=== PATIENT | male | born 1975 | race Caucasian/White ===

== ENCOUNTER 2017-05-07 16:00 | Emergency (ER) | payer OTHER ==
[2017-05-07 16:07] VITALS: BP 104/56; PULSE 94; TEMP 98.1; BMI 21.7
--- NOTE | 2017-05-07 16:45 | PDOC ---
History of Present Illness - General Chief Complaint: Head/Neck problem Stated Complaint: PAIN Time Seen by Provider: 05/07/17 16:21 History Source: Patient Exam Limitations: No Limitations - History of Present Illness Initial Comments: 05/07/17 16:40 41 y/o male presents to the ED with complaints of intermittent twitching to his head and neck since of October. Patient states was involved in a closed head injury in 2000 where he was seen by a neurologist will a few months and then failed to follow-up. Patient states has no visual changes, headache, dizziness, decreased range of motion of the neck, or radiation of pain. Timing/Duration: intermittent Severity: mild Associated Symptoms: reports: denies symptoms Past History - Travel Traveled outside of the country in the last 30 days: No - Past Medical History Allergies/Adverse Reactions: Allergies Allergy/AdvReac Type Severity Reaction Status Date / Time No Known Allergies Allergy Verified 05/07/17 16:04 Home Medications: Ambulatory Orders NK [No Known Home Medication] 05/07/17 - Psycho/Social/Smoking Cessation Hx Suicidal Ideation: No Smoking History: Never smoked Cigars Per Day: 1 Patient Lives Alone: No Lives with/in: spouse/SO Review of Systems - Review of Systems Able to Perform ROS?: Yes HEENTM: No: Symptoms Reported Respiratory: No: Symptoms reported Cardiac (ROS): No: Symptoms Reported Integumentary: No: Symptoms Reported Neurological: Yes: Other (neck twitching) Hematologic/Lymphatic: No: Symptoms Reported *Physical Exam - Vital Signs Last Vital Signs Temp Pulse Resp BP Pulse Ox 98.1 F 94 H 18 104/56 97 05/07/17 16:04 05/07/17 16:04 05/07/17 16:04 05/07/17 16:04 05/07/17 16:04 - Physical Exam General Appearance: Yes: Nourished, Appropriately Dressed. No: Apparent Distress Neck: positive: Supple. negative: Tender, Decreased range of motion Musculoskeletal: negative: Muscle Spasm, Vertebral Tenderness Integumentary: positive: Normal Color, Warm, Moist Medical Decision Making - Medical Decision Making 05/07/17 16:42 Patient here for evaluation of intermittent Twitching since October. Patient denies worsening symptoms patient states was finally convinced to see someone so decided come to the ER. Patient has not followed up with a neurologist for symptoms above. Patient had no involuntary twitching while present in the ER. Patient had no point tenderness to the cervical region or decreased range of motion. I recommended patient follow-up with neurologist for consultation to check for nerve involvement *DC/Admit/Observation/Transfer Diagnosis at time of Disposition: Muscle twitching - Discharge Dispostion Disposition: HOME Condition at time of disposition: Good - Referrals Referrals: Blaze Medina DO [Staff Physician] - - Patient Instructions Additional Instructions: I recommend that you follow up with referred neurologist
== END 2017-05-07 17:10 | disposition home or self-care (01) ==
LOC: JERFT 16:00
DX: G25.89 Other specified extrapyramidal and movement disorders (principal)
CPT/HCPCS: 99281-25